=== PATIENT | female | born 1945 | race Caucasian/White ===

== ENCOUNTER 2018-07-24 01:29 | Outpatient (CLI) | payer OTHER, SELFPAY ==
--- NOTE | 2018-07-24 11:14 | DI.MAMMO_ITS ---
SYMPTOM/DIAGNOSIS: SCREENING, Z12.31 MAMMOGRAMS: Mammograms were interpreted according to the usual protocol including computer analysis with CAD system, tomosynthesis and C view imaging. Comparison is made with exams from [id number]. The breasts are composed of heterogeneously dense fibroglandular tissue, breast density, Category C. No suspicious masses or suspicious microcalcifications are seen. There has been no significant change. IMPRESSION: Category 1, negative mammogram. Yearly screening mammography is recommended. [facility] ASSESSMENT OF FINDINGS: Negative. Category 1. Patient will receive a letter notifying them of these results. Bi-RADS category C. The breasts are heterogeneously dense, which may obscure small masses.
== END 2018-07-24 01:49 ==
PROVIDERS: PCP Internal Medicine; Visit Provider Internal Medicine
DX: Z12.31 Encounter for screening mammogram for malignant neoplasm of breast (principal)
CPT/HCPCS: 77063; 77067

== ENCOUNTER 2019-09-27 00:23 | Outpatient (CLI) | payer OTHER, SELFPAY ==
--- NOTE | 2019-09-27 | DI.MAMMO_ITS ---
EXAM: MG MAMMO SCREENING CLINICAL HISTORY: SCREENING, Z12.31 TECHNIQUE: Bilateral full field digital CC and MLO mammographic images were obtained with 3D tomosyn thesis and utilizing computer aided detection (CAD). COMPARISON: Available for comparison. FINDINGS: Masses/Architectural Distortion: None seen. Microcalcifications: No suspicious pleomorphic-type are seen. Skin Thickening/Nipple Retraction: None. IMPRESSION: 1. No significant interval change with no specific features of malignancy noted. 2. Unless there is more urgent need, screening mammography is recommended, as per [employer] guidelines. BI-RADS Category 1 - Negative Breast Density - Category C - Heterogeneously dense The mammogram demonstrates the patient's breast tissue is dense. Dense breast tissue is very common a nd is not abnormal but dense breast tissue can make it harder to find cancer on a mammogram. Also, de nse breast tissue may increase their breast cancer risk. This information about the result of the [facility] m[facility] report was provided to the patient to raise their awareness. Use this report when you speak wi th the patient about their risks for breast cancer, which includes their family history. At that time , you may recommend for more screening tests (Ultrasound or MRI) as they might be useful based on the ir risk. A negative radiographic report should not delay biopsy if a dominant or clinically suspicious mass is present. Up to ten percent of cancers are not identified on mammography. A negative report may reinforce clinical impression. Adenosis and dense breasts may obscure an underlying neoplasm. False positive reports average 6 to 10%. Patient will receive a letter notifying them of these results.
== END 2019-09-27 00:43 ==
PROVIDERS: PCP Internal Medicine; Visit Provider Internal Medicine
DX: Z12.31 Encounter for screening mammogram for malignant neoplasm of breast (principal); R92.2 Inconclusive mammogram
CPT/HCPCS: 77063; 77067

== ENCOUNTER 2021-02-10 09:13 | Outpatient (CLI) | payer MEDICARE, SELFPAY ==
--- NOTE | 2021-02-10 09:00 | RT.EKG_ITS ---
APPROVED REPORT Exam: Resting ECG Reason for Exam: Irregular heart beat Patient Location: O HR:101 bpm ECG Measurements Heart Rate 101 AXIS FL 133 P 5 QRSd 80 QRS 3 QT 365 T 15 QTc 474 Conclusion Sinus tachycardia...rate> 99 Consider right atrial enlargement...P >0.24mV limb lead Borderline low voltage, extremity leads...all extremity leads <0.6mV ST depression, consider ischemia, lateral lds...ST <-0.10mV, I aVL V5 V6
== END 2021-02-10 09:14 | disposition home or self-care (01) ==
LOC: DI.CARD 09:14
PROVIDERS: PCP Internal Medicine; Visit Provider Internal Medicine Cardiovascular Disease
DX: I49.9 Cardiac arrhythmia, unspecified (principal); R00.0 Tachycardia, unspecified
CPT/HCPCS: 93010

== ENCOUNTER → 2021-02-10 12:45 | Outpatient (BNVA) | payer MEDICARE, SELFPAY | PROVIDERS: PCP Internal Medicine; Referring Provider Internal Medicine; Visit Provider Internal Medicine Cardiovascular Disease | DX: R94.31 Abnormal electrocardiogram [ECG] [EKG] (principal); I10 Essential (primary) hypertension; R93.1 Abnormal findings on diagnostic imaging of heart and coronary circulation | CPT/HCPCS: 93005; 99203 ==

== ENCOUNTER 2021-03-16 01:04 | Outpatient (CLI) | payer MEDICARE, SELFPAY ==
--- NOTE | 2021-03-16 07:00 | DI.NM_ITS ---
APPROVED REPORT Exam: Pharmacologic Patient Location: Out-Patient Room/Bed: Stress Nurse: Natalia Villareal RN Ordering Provider:DONNY ROSENBERG, Contact Number: [phone] BMI: 26.36 Baseline Rhythm: Sinus Tachycardia Comment: ST depression leads II, II, AVF Indications: LLT Ventricular Hypertrophy, cardiomegaly, abnormal EKG Medical History Medical History: Hypertension, hyperlipidemia, cardiomegaly, atherosclerosis, irregular HR, left vent ricular hypertrophy Cardiac Medications: Pravastatin, losartan, hydrochlorothiazide, aspirin Allergies: NKDA Cardiac Risk Factors: Hypertension, hyperlipidemia, CVD, family hx Previous Cardiac Procedures: None Pretest Chest Pain Characteristics: None Exercise History: Physically active Physical Disabilities: None Lung Sounds: Clear to auscultation Heart Sounds: Regular Stress Test Details Test: Pharmacologic stress testing performed using 0.4 mg of regadenoson per 5 mL given IV over 10 s econds. Reason for pharmacologic stress test: hypertensive. Nuclear Acquisition: Rest Tc-99m/Stress Tc-99m 1 day Rest Isotope: Tc-99m Sestamibi. Dose: 9.0 Date: 03/16/2021 Injection Time: 0845 Stress Isotope: Tc-99m Sestamibi. Dose: 34.0 Date: 03/16/2021 Injection Time: 1024 HR Resting HR Supine: 107 bpm Max Heart Rate (APMHR): 145.797239 bpm Target HR (85% APMHR): 123.059048 bpm Max HR Achieved: 124 bpm % of APMHR: 85.52 Recovery HR: 105 bpm BP Resting BP Supine: 208/110 mmHg Max BP: 212/98 mmHg Recovery BP: 198/90 mmHg Comment: Hypertensive ECG Resting ECG: Sinus Tachycardia Ectopy: Frequent PVCs Comment: Baseline horizontal ST depression leads II, II, AVF- 1mm Stress ECG: Sinus Tachycardia ST Change: Horizontal ST depression, Downsloping ST depression Lead(s): II, III, AVF, V5, V6 Maximum ST Deviation: 3 mm Arrhythmia: Frequent PVCs Recovery ECG: Sinus Tachycardia Recovery ST Change: Return to baseline horizontal ST depression Lead(s): II, III, AVF Recovery ST Deviation: 1 mm Recovery Arrhythmia: Frequent PVCs, trigeminy Clinical Stress Symptoms: Dyspnea, chest pain, palpitations Rate Pressure Product: [id number] Stress ECG Conclusion 1. Resting electrocardiogram showed left ventricular hypertrophy with repolarization abnormalities 2. The patient underwent pharmacologic stress with regadenoson 3. Resting hypertension throughout. Peak heart rate was 85% of predicted for age 4. Electrocardiographically the test was consistent with myocardial ischemia with additional [address] depression in the inferior and anterolateral leads 5. Frequent ventricular ectopic beats were noted Stress Test Summary STAGE HR BP Symptoms NOTES Supine 107 204/102 SpO2 97% Repeat BP after 5 minutes rest 208/110. 1 min post Lexiscan injection 124 212/98 SpO2 97% Mild dyspnea. 3 min post Lexiscan injection 113 208/93 SpO2 96% Dyspnea resolved. Reports chest heaviness 5/10 an d palpitations. 6 min post Lexiscan injection 105 198/90 SpO2 97% Chest heaviness resolved. Pt hypertensive when supine. Initial BP 204/102. After 5 minutes rest BP 208/110, asymptomatic. Consu lted w/ MD Rosenberg, recommendation to proceed w/ pharmacologic exam. Pt tolerated pharmacologic stress w ell, though reported mild dyspnea, chest heaviness 5/10, and palpitations. Palpitaions were synchrono us w/ trigeminy. All symptoms resolved by minute 6 after lexiscan injection was given. Pt denied furt her signs/symptoms prior to leaving stress testing area for further imaging. MPI Conclusion Inferior wall ischemia and hypokinesis EF 43% Radiologist Interpretation Radiologist agrees with [employer] Super[employer]'s Interpretation. Radiologist Interpretation by: Polina Rai MD Interpretation Date/Time: 03/16/2021 16:22:44
[2021-03-16] MEDS: Regadenoson 0.4 MG/5 ML SYR IVP (10:52)
== END 2021-03-16 01:24 ==
PROVIDERS: PCP Internal Medicine; Visit Provider Internal Medicine Cardiovascular Disease
DX: I51.7 Cardiomegaly (principal); R94.31 Abnormal electrocardiogram [ECG] [EKG]; I49.3 Ventricular premature depolarization; R00.8 Other abnormalities of heart beat; I10 Essential (primary) hypertension; E78.5 Hyperlipidemia, unspecified; I25.5 Ischemic cardiomyopathy; I25.10 Atherosclerotic heart disease of native coronary artery without angina pectoris; Z82.49 Family history of ischemic heart disease and other diseases of the circulatory system
CPT/HCPCS: 78452; 93016; 93018; 93306; 93017; J2785

== ENCOUNTER → 2021-03-23 13:22 | Outpatient (BNVA) | payer MEDICARE, SELFPAY | PROVIDERS: PCP Internal Medicine; Referring Provider Internal Medicine; Visit Provider Internal Medicine Cardiovascular Disease | DX: R93.1 Abnormal findings on diagnostic imaging of heart and coronary circulation (principal); R94.39 Abnormal result of other cardiovascular function study; I10 Essential (primary) hypertension; Z71.2 Person consulting for explanation of examination or test findings | CPT/HCPCS: 99213 ==

== ENCOUNTER → 2021-04-06 10:12 | Outpatient (BNVA) | payer MEDICARE, SELFPAY | PROVIDERS: PCP Internal Medicine; Referring Provider Internal Medicine; Visit Provider Internal Medicine Cardiovascular Disease | DX: E78.5 Hyperlipidemia, unspecified (principal); R94.39 Abnormal result of other cardiovascular function study; I10 Essential (primary) hypertension; R93.1 Abnormal findings on diagnostic imaging of heart and coronary circulation; R94.31 Abnormal electrocardiogram [ECG] [EKG] | CPT/HCPCS: 99214 ==

== ENCOUNTER 2021-04-13 03:57 | Outpatient (CLI) | payer MEDICARE, SELFPAY ==
[2021-04-13 13:16] LABS: Abs Immature Grans 0.02 10^3/uL (0.0-0.06); Absolute Basophil Count 0.05 10^3/uL (0.0-0.2); Absolute Eosinophil Count 0.18 10^3/uL (0.0-0.7); Absolute Lymphocyte Count 3.21 10^3/uL (1.2-3.4); Absolute Monocyte Count 0.82 10^3/uL (0.1-0.8); Absolute Neutrophil Count 6.46 10^3/uL (1.2-6.7); Basophils % 0.5; Eosinophils % 1.7; HCT 46.7 % (36.0-46.0); HGB 15.8 g/dL (11.2-15.7); Immature Grans % 0.2; Lymphocytes % 29.9; MCH 31.7 pg (27.0-33.0); MCHC 33.8 % (32.0-36.0); MCV 93.6 fL (80-95); MPV 9.8 fL (8.0-11.0); Monocytes % 7.6; Neutrophils % 60.1; Nucleated RBC 0 %; Platelet Count 314 10^3/uL (130-400); RBC 4.99 10^6/uL (3.93-5.22); RDW 12.8 % (11.7-14.6); RDW-SD 43.9 fL; WBC 10.74 10^3/uL (4.4-10.8)
[2021-04-13 13:30] LABS: Prothrombin Time 9.7 sec (9.3-11.0)
[2021-04-13 13:45] LABS: Anion Gap 8.2 mmol/L (3-11); BUN 21 mg/dL (7-18); CO2 31.8 mmol/L (21.0-32.0); CREATININE 1.1 mg/dL (0.55-1.02); Calcium 9.6 mg/dL (8.5-10.1); Chloride 103 mmol/L (98-107); Estimated GFR 48.42 (mL/min/1.73m2); Glucose 138 mg/dL (74-106); Potassium 4.4 mmol/L (3.5-5.1); Sodium 143 mmol/L (136-145)
== END 2021-04-13 03:58 | disposition home or self-care (01) ==
LOC: LBO 03:57
PROVIDERS: PCP Internal Medicine; Visit Provider Internal Medicine Cardiovascular Disease
DX: Z01.818 Encounter for other preprocedural examination (principal); R93.1 Abnormal findings on diagnostic imaging of heart and coronary circulation; R94.31 Abnormal electrocardiogram [ECG] [EKG]; I51.7 Cardiomegaly; I25.10 Atherosclerotic heart disease of native coronary artery without angina pectoris
CPT/HCPCS: 36415; 80048; 85025; 85610; 85730

== ENCOUNTER → 2021-05-12 10:45 | Outpatient (BNVA) | payer MEDICARE, SELFPAY | PROVIDERS: PCP Internal Medicine; Referring Provider Internal Medicine; Visit Provider Internal Medicine Cardiovascular Disease | DX: I25.10 Atherosclerotic heart disease of native coronary artery without angina pectoris (principal); I10 Essential (primary) hypertension; E78.5 Hyperlipidemia, unspecified | CPT/HCPCS: 99214; 99213 ==

== ENCOUNTER → 2021-11-03 10:23 | Outpatient (BNVA) | payer MEDICARE, SELFPAY | PROVIDERS: PCP Internal Medicine; Referring Provider Internal Medicine; Visit Provider Internal Medicine Cardiovascular Disease | DX: I25.10 Atherosclerotic heart disease of native coronary artery without angina pectoris (principal); I10 Essential (primary) hypertension; R94.31 Abnormal electrocardiogram [ECG] [EKG] | CPT/HCPCS: 93005; 99213 ==

== ENCOUNTER 2021-11-03 10:42 | Outpatient (CLI) | payer MEDICARE, SELFPAY ==
--- NOTE | 2021-11-03 10:30 | RT.EKG_ITS ---
APPROVED REPORT Exam: Resting ECG Reason for Exam: NPW, Baseline needed Patient Location: O HR:60 bpm ECG Measurements Heart Rate 60 AXIS NC 152 P 46 QRSd 92 QRS -9 QT 424 T 21 QTc 424 Conclusion Sinus rhythm...normal P axis, V-rate 50- 99 Left atrial enlargement...P, P'>60mS, <-0.15mV V1 Minor diffuse nondiagnostic ST abnormalities
== END 2021-11-03 10:43 | disposition home or self-care (01) ==
LOC: DI.CARD 10:42
PROVIDERS: PCP Internal Medicine; Visit Provider Internal Medicine Cardiovascular Disease
DX: I10 Essential (primary) hypertension (principal); I25.10 Atherosclerotic heart disease of native coronary artery without angina pectoris; I51.7 Cardiomegaly; R93.1 Abnormal findings on diagnostic imaging of heart and coronary circulation; R94.31 Abnormal electrocardiogram [ECG] [EKG]; R94.39 Abnormal result of other cardiovascular function study
CPT/HCPCS: 93010

== ENCOUNTER → 2022-10-21 09:22 | Outpatient (BNVA) | payer MEDICARE, SELFPAY | PROVIDERS: PCP Internal Medicine; Referring Provider Internal Medicine; Visit Provider Internal Medicine Cardiovascular Disease | DX: I25.10 Atherosclerotic heart disease of native coronary artery without angina pectoris (principal); I10 Essential (primary) hypertension | CPT/HCPCS: 99213 ==

== ENCOUNTER 2023-10-21 09:01 | Outpatient (CLI) | payer MEDICARE, SELFPAY ==
--- NOTE | 2023-10-21 09:00 | RT.EKG_ITS ---
APPROVED REPORT Exam: Resting ECG Reason for Exam: cardiac evaluation Patient Location: O HR:57 bpm ECG Measurements Heart Rate 57 AXIS IN 145 P 41 QRSd 88 QRS -8 QT 435 T 23 QTc 424 Conclusion Sinus rhythm...normal P axis, V-rate 50- 99 Probable left atrial enlargement...P >50mS, <-0.10mV V1 Left ventricular hypertrophy...multiple voltage criteria
== END 2023-10-21 09:02 | disposition home or self-care (01) ==
LOC: DI.CARD 09:02
PROVIDERS: PCP Internal Medicine; Visit Provider Internal Medicine Cardiovascular Disease
DX: I51.7 Cardiomegaly (principal); I25.10 Atherosclerotic heart disease of native coronary artery without angina pectoris; I10 Essential (primary) hypertension
CPT/HCPCS: 93010

== ENCOUNTER → 2023-10-21 09:26 | Outpatient (BNVA) | payer MEDICARE, SELFPAY | PROVIDERS: PCP Internal Medicine; Referring Provider Internal Medicine; Visit Provider Internal Medicine Cardiovascular Disease | DX: I25.10 Atherosclerotic heart disease of native coronary artery without angina pectoris (principal); R94.31 Abnormal electrocardiogram [ECG] [EKG]; I51.7 Cardiomegaly; I10 Essential (primary) hypertension; E78.5 Hyperlipidemia, unspecified | CPT/HCPCS: 93005; 99213 ==

== ENCOUNTER 2024-10-19 09:25 | Outpatient (CLI) | payer MEDICARE, SELFPAY ==
--- NOTE | 2024-10-19 09:30 | RT.EKG_ITS ---
APPROVED REPORT Exam: Resting ECG Reason for Exam: follow up Patient Location: O HR:54 bpm ECG Measurements Heart Rate 54 AXIS FL 144 P 36 QRSd 84 QRS -17 QT 437 T 4 QTc 415 Conclusion Sinus rhythm...normal P axis, V-rate 50- 99 Left atrial enlargement...P, P'>60mS, <-0.15mV V1 Left ventricular hypertrophy...multiple voltage criteria
== END 2024-10-19 09:26 | disposition home or self-care (01) ==
LOC: DI.CARD 09:43
PROVIDERS: PCP Internal Medicine; Referring Provider Internal Medicine; Visit Provider Internal Medicine Cardiovascular Disease
DX: I25.10 Atherosclerotic heart disease of native coronary artery without angina pectoris (principal); I51.7 Cardiomegaly
CPT/HCPCS: 93010

== ENCOUNTER → 2024-10-19 09:25 | Outpatient (BNVA) | payer MEDICARE, SELFPAY | PROVIDERS: PCP Internal Medicine; Referring Provider Internal Medicine; Visit Provider Internal Medicine Cardiovascular Disease | DX: I25.10 Atherosclerotic heart disease of native coronary artery without angina pectoris (principal); I10 Essential (primary) hypertension | CPT/HCPCS: 99213; 93005 ==